=== PATIENT | male | born 1990 | race Caucasian/White ===

== ENCOUNTER 2020-04-25 15:50 | Emergency (ER) | payer OTHER ==
[~2020-04-25] VITALS: Ht 185.4 cm; Wt 136.1 kg
[2020-04-25] MEDS ORDERED: DEPO-TESTO100 MG/1 M IM (16:18)
[2020-04-25] MEDS ORDERED: PRISTIQ ER50 MG PO (16:19)
--- OUTSIDE RECORDS SUMMARY | 2020-04-25 16:48 | XMS ---
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 E.D. VISIT COUNT (12 MO.) [address] [place] [address] TOTAL 1 NOTE: Visits indicate total known visits. ED/UCC VISIT TRACKING (12 MO.) 04/25/2020 15:[address] [facility] [place] TYPE: Emergency COMPLAINT: - LEFT ANKLE INJURY INPATIENT VISIT TRACKING (12 MO.) No inpatient visits to display in this time frame [email or web address]
== END 2020-04-25 16:54 | disposition home or self-care (01) ==
LOC: ED 15:50
DX: S93.402A Sprain of unspecified ligament of left ankle, initial encounter (principal); S93.602A Unspecified sprain of left foot, initial encounter; Z91.013 Allergy to seafood; X58.XXXA Exposure to other specified factors, initial encounter
CPT/HCPCS: 73610; 73630; 99283-25

== ENCOUNTER 2020-06-28 10:36 | Emergency (ER) | payer OTHER ==
[~2020-06-28] VITALS: Ht 185.4 cm; Wt 122.5 kg
[~2020-06-28 10:36] MED LIST: DEPO-TESTO100 MG/1 M IM; PRISTIQ ER50 MG PO
--- OUTSIDE RECORDS SUMMARY | 2020-06-28 10:40 | XMS ---
PreManage Notification: TATIANA LIMA Security Hedis Manager Events No recent Security Events currently on file CRITERIA MET - [facility] CARE PROVIDERS Ziyad Ankita Community Health Worker 03/10/2018-Current PHONE: [phone] Care Guidelines exist for the following facilities: [facility] ( 06/04/2020 ) [place] VISIT COUNT (12 MO.) 2 [facility] TOTAL 2 NOTE: Visits indicate total known visits. ED/UCC VISIT TRACKING (12 MO.) 06/28/2020 10:36 [facility] [place] TYPE: Emergency COMPLAINT: - LOWER BACK INJURY 04/25/2020 15:55 [facility] [place] TYPE: Emergency COMPLAINT: - LEFT ANKLE INJURY DIAGNOSES: - Unspecified injury of left ankle, initial encounter - Allergy to seafood - Sprain of unspecified ligament of left ankle, initial encounter - Unspecified sprain of left foot, initial encounter - Exposure to other specified factors, initial encounter INPATIENT VISIT TRACKING (12 MO.) No inpatient visits to display in this time frame [email or web address]
[2020-06-28] MEDS ORDERED: HYDROCODON-ACE1 EA11 PO (11:28)
== END 2020-06-28 11:37 | disposition home or self-care (01) ==
LOC: ED 10:36
DX: S39.012A Strain of muscle, fascia and tendon of lower back, initial encounter (principal); Z91.041 Radiographic dye allergy status; Z91.013 Allergy to seafood; W18.39XA Other fall on same level, initial encounter; Y99.0 Civilian activity done for income or pay
CPT/HCPCS: 99283

== ENCOUNTER 2021-01-23 21:15 | Emergency (ER) | payer OTHER ==
[~2021-01-23] VITALS: Ht 185.4 cm; Wt 113.4 kg
[~2021-01-23 21:15] MED LIST changes: +HYDROCODON-ACE1 EA11 PO
--- OUTSIDE RECORDS SUMMARY | 2021-01-23 21:18 | XMS ---
PreManage Notification: TATIANA LIAM [facility] Events 1 event(s) in the past 18 months Most recent security events: Elopement at [facility] 11/08/2020 18:12 - Other Details: [facility] Joseph Nurse Practitioner 07/02/2020-Ag QUANFER PHONE: [phone] Ankita Lackey Community Health Worker 03/10/2018-Current PHONE: [phone] Care Guidelines exist for the following facilities: [facility] ( 06/04/2020 ) [place] VISIT COUNT (12 MO.) 1 [facility] [address] [facility] TOTAL 5 NOTE: Visits indicate total known visits. ED/UCC VISIT TRACKING (12 MO.) 01/23/2021 21:[address] [facility] [place] TYPE: Emergency COMPLAINT: - RT FOOT, TOE LACERATION 11/08/2020 18:[address] [facility] [place] TYPE: Emergency COMPLAINT: - BODY ACHES,DIARRHEA 07/26/2020 08:30 [facility] [place] TYPE: Emergency DIAGNOSES: - Other intervertebral disc displacement, lumbar region - BACK INJURY,OJI 06/28/2020 10:36 [facility] [place] TYPE: Emergency COMPLAINT: - LOWER BACK INJURY DIAGNOSES: - Allergy to seafood - Strain of muscle, fascia and tendon of lower back, initial encounter - Low back pain - Allergy status to other drugs, medicaments and biological substances - Radiographic dye allergy status - Other fall on same level, initial encounter - Civilian activity done for income or pay 04/25/2020 15:55 [facility] [place] TYPE: Emergency [...] visits to display in this time frame [email or web address]
[2021-01-23] MEDS ORDERED: CEPHALEXIN500 MG PO (23:51)
== END 2021-01-24 00:10 | disposition home or self-care (01) ==
LOC: ED 21:15
PROC: 0HQMXZZ Repair Right Foot Skin, External Approach (ICD-10-PCS; principal; 2021-01-23)
DX: S91.111A Laceration without foreign body of right great toe without damage to nail, initial encounter (principal); L03.011 Cellulitis of right finger; Z91.041 Radiographic dye allergy status; Z91.013 Allergy to seafood
CPT/HCPCS: 12001; 99283-25